=== PATIENT | male | born 1950 | race Caucasian/White ===

== ENCOUNTER 2017-10-16 14:58 | Inpatient (IN) | payer MEDICARE ==
[2017-10-16] MEDS: VANCOMYCIN 1 GM (PMX) 250 ML IVPB (23:30)
[2017-10-16] MEDS: PIPER-TAZO 3.375 GM IV (PMX) 100 ML IVPB (23:46)
[2017-10-16 23:48] LABS: ADD MAN DIFF? NO
[2017-10-16 23:50] LABS: WHITE BLOOD COUNT 8.4 10^3/ul (4.8-10.8)
[2017-10-16 23:50] LABS: BASOPHIL # 0.1 10^3/ul (0.0-0.1); BASOPHILS % 0.6 % (0.0-2.0); EOSINOPHILS # 0.2 10^3/ul (0.0-0.5); HEMATOCRIT 47.8 % (42.0-52.0); HEMOGLOBIN 15.7 g/dl (14.0-18.0); LYMPHOCYTES # 1.6 10^3/ul (0.8-2.9); LYMPHOCYTES % 18.9 % (15.0-51.0); MEAN CORPUSCULAR HEMOGLOBIN 30.8 pg (29.0-33.0); MEAN CORPUSCULAR HGB CONC 32.8 g/dl (32.0-37.0); MEAN CORPUSCULAR VOLUME 93.9 fl (82.0-101.0); MONOCYTE # 0.8 10^3/ul (0.3-0.9); NEUTROPHIL # 5.7 10^3/ul (1.6-7.5); PLATELET COUNT 224 10^3/UL (140-415); RED BLOOD COUNT 5.09 10^6/ul (4.70-6.10); RED CELL DISTRIBUTION WIDTH 12.9 % (11.5-14.5)
[2017-10-17] MEDS ORDERED: ACETAMINOPHEN 325 MG TAB PO
[2017-10-17] MEDS ORDERED: ONDANSETRON 4 MG INJ IV
[2017-10-17 00:26] LABS: ANION GAP 18 (8-16); BLOOD UREA NITROGEN 30 mg/dl (7-20); C-REACTIVE PROTEIN 3.6 mg/dl (0.0-0.9); CALCIUM 9.1 mg/dl (8.4-10.2); CARBON DIOXIDE 24 mmol/L (21-31); CHLORIDE 95 mmol/L (97-110); CREATININE 1.53 mg/dl (0.61-1.24); GLUCOSE 396 mg/dl (70-220); POTASSIUM 3.5 mmol/L (3.5-5.1); SODIUM 133 mmol/L (135-144)
[2017-10-17 00:48] LABS: ERYTHROCYTE SEDIMENTATION RATE 32 mm/Hr (0-20)
[2017-10-17] MEDS ORDERED: DEXTROSE 50% 50 ML SYRINGE IV ×2 (04:30)
[2017-10-17] MEDS ORDERED: GLUCAGON 1 MG INJ IM (04:30)
[2017-10-17] MEDS ORDERED: GLUCOSE GEL 15 GRAM TUBE BUCCAL (04:30)
[2017-10-17] MEDS ORDERED: HYDROCODONE/APAP (10/325) TAB PO (04:30)
[2017-10-17] MEDS ORDERED: VANCOMYCIN IV PER PHARMACY XX (04:30)
[2017-10-17] MEDS ORDERED: GLUCOSE GEL 15 GRAM TUBE PO ×2 (04:30)
[2017-10-17] MEDS: ALBUTEROL HFA 8 GM INHALER INH ×5 (05:00→20:39)
[2017-10-17] MEDS: metFORMIN 500 MG TAB PO ×2 (08:53→17:35)
[2017-10-17] MEDS: NATEGLINIDE 120 MG TAB PO ×3 (08:53→17:35)
[2017-10-17] MEDS: FENOFIBRATE 145 MG TAB PO (08:53)
[2017-10-17] MEDS: [UNRECOGNIZED DRUG - OTHER] XX ×2 (08:54→16:52)
[2017-10-17] MEDS ORDERED: NON-FORMULARY/PATIENT OWN MED (Liraglutide (Victoza 3-Pak) 1.8 MG) SQ (09:00)
[2017-10-17] MEDS: INSULIN ASPART [NOVOLOG] 3 ML PEN SC ×4 (09:16→21:00)
[2017-10-17] MEDS: VANCOMYCIN 1.25 GM in SOD CHLORIDE 0.45% 250 ML IVPB (09:25)
[2017-10-17] MEDS: TIOTROPIUM 18 MCG CAPSULE INHA DEV INH (09:25)
[2017-10-17] MEDS: SOD CHLORIDE 0.9% 1,000 ML IV (18:34)
[2017-10-17] MEDS: VANCOMYCIN 750 MG in DEXTROSE 5% 150 ML IVPB (20:39)
[2017-10-17] MEDS: ATORVASTATIN 40 MG TAB PO (20:39)
[2017-10-17] MEDS: INSULIN GLARGINE [LANtus] 3 ML PEN SC (20:42)
[2017-10-17] MEDS: HEPARIN 5,000 UNIT/0.5 ML VIAL SC (20:43)
[2017-10-17] MEDS ORDERED: LIRAGLUTIDE 0.6 MG/0.1 ML PEN.INJCTR SC ×2 (21:00)
[2017-10-17] MEDS: ACCU-CHEK XX (21:56)
[2017-10-17] MEDS: LIRAGLUTIDE SC (22:26)
[2017-10-18] MEDS: ALBUTEROL HFA 8 GM INHALER INH ×6 (01:00→20:32)
[2017-10-18] MEDS: SOD CHLORIDE 0.9% 1,000 ML IV ×2 (04:00→14:18)
[2017-10-18 05:28] LABS: ADD MAN DIFF? NO
[2017-10-18 05:34] LABS: WHITE BLOOD COUNT 7.8 10^3/ul (4.8-10.8)
[2017-10-18 05:34] LABS: BASOPHILS % 0.5 % (0.0-2.0); EOSINOPHILS # 0.2 10^3/ul (0.0-0.5); EOSINOPHILS % 2.4 % (0.0-7.0); HEMATOCRIT 42.4 % (42.0-52.0); HEMOGLOBIN 14.2 g/dl (14.0-18.0); LYMPHOCYTES # 1.4 10^3/ul (0.8-2.9); LYMPHOCYTES % 17.4 % (15.0-51.0); MEAN CORPUSCULAR HEMOGLOBIN 31.4 pg (29.0-33.0); MEAN CORPUSCULAR HGB CONC 33.5 g/dl (32.0-37.0); MEAN CORPUSCULAR VOLUME 93.8 fl (82.0-101.0); MEAN PLATELET VOLUME 8.8 fl (7.4-10.4); MONOCYTE # 0.8 10^3/ul (0.3-0.9); MONOCYTES % 10.2 % (0.0-11.0); NEUTROPHIL # 5.4 10^3/ul (1.6-7.5); NEUTROPHILS % 68.9 % (39.0-77.0); PLATELET COUNT 202 10^3/UL (140-415); RED BLOOD COUNT 4.52 10^6/ul (4.70-6.10)
[2017-10-18 05:48] LABS: CHOLESTEROL 121 mg/dl (100-200)
[2017-10-18 05:48] LABS: CHOL/HDL RATIO 2.8 RATIO; HDL CHOLESTEROL 43 mg/dl (30-78); LDL CHOLESTEROL,CALCULATED 50 mg/dl; TRIGLYCERIDES 138 mg/dl (0-149)
[2017-10-18 06:03] LABS: ALANINE AMINOTRANSFERASE 30 IU/L (13-69); ALKALINE PHOSPHATASE 64 IU/L (42-121); ANION GAP 13 (8-16); ASPARTATE AMINO TRANSFERASE 16 IU/L (15-46); BILIRUBIN,INDIRECT 0.2 mg/dl (0-1.1); BILIRUBIN,TOTAL 0.2 mg/dl (0.2-1.3); BLOOD UREA NITROGEN 18 mg/dl (7-20); CALCIUM 8.5 mg/dl (8.4-10.2); CARBON DIOXIDE 25 mmol/L (21-31); CHLORIDE 104 mmol/L (97-110); CREATININE 1.26 mg/dl (0.61-1.24); GLUCOSE 109 mg/dl (70-220); SODIUM 138 mmol/L (135-144)
[2017-10-18 06:04] LABS: ALBUMIN 3.2 g/dl (3.3-4.9); ALBUMIN/GLOBULIN RATIO 1.14
[2017-10-18] MEDS: INSULIN ASPART [NOVOLOG] 3 ML PEN SC ×4 (07:50→21:00)
[2017-10-18 08:26] LABS: HEMOGLOBIN A1C 13.9 % (0-5.9)
[2017-10-18] MEDS: NATEGLINIDE 120 MG TAB PO ×3 (08:48→18:08)
[2017-10-18] MEDS: FENOFIBRATE 145 MG TAB PO (08:48)
[2017-10-18] MEDS: metFORMIN 500 MG TAB PO ×2 (08:48→18:08)
[2017-10-18] MEDS: LINAGLIPTIN 5 MG TABLET PO (08:48)
[2017-10-18] MEDS: VANCOMYCIN 750 MG in DEXTROSE 5% 150 ML IVPB ×2 (08:49→22:18)
[2017-10-18] MEDS: TIOTROPIUM 18 MCG CAPSULE INHA DEV INH (08:49)
[2017-10-18] MEDS: EMPAGLIFLOZIN 10 MG TABLET PO (08:49)
[2017-10-18] MEDS: HEPARIN 5,000 UNIT/0.5 ML VIAL SC ×2 (09:00→20:37)
[2017-10-18] MEDS ORDERED: LIRAGLUTIDE 0.6 MG/0.1 ML PEN.INJCTR SC (09:00)
[2017-10-18] MEDS: ATORVASTATIN 40 MG TAB PO (20:33)
[2017-10-18] MEDS: LIRAGLUTIDE SC (20:33)
[2017-10-18] MEDS: INSULIN GLARGINE [LANtus] 3 ML PEN SC (20:36)
[2017-10-18] MEDS ORDERED: LIRAGLUTIDE SC ×2 (21:00)
[2017-10-18] MEDS: ACCU-CHEK XX (22:47)
[2017-10-19] MEDS: ALBUTEROL HFA 8 GM INHALER INH ×6 (01:00→20:28)
[2017-10-19] MEDS: SOD CHLORIDE 0.9% 1,000 ML IV ×4 (03:14→20:00)
[2017-10-19] MEDS: INSULIN ASPART [NOVOLOG] 3 ML PEN SC ×4 (07:50→21:00)
[2017-10-19] MEDS: LINAGLIPTIN 5 MG TABLET PO (08:27)
[2017-10-19] MEDS: NATEGLINIDE 120 MG TAB PO ×3 (08:27→18:03)
[2017-10-19] MEDS: metFORMIN 500 MG TAB PO ×2 (08:27→18:03)
[2017-10-19] MEDS: TIOTROPIUM 18 MCG CAPSULE INHA DEV INH (08:27)
[2017-10-19] MEDS: EMPAGLIFLOZIN 10 MG TABLET PO (08:27)
[2017-10-19] MEDS: FENOFIBRATE 145 MG TAB PO (08:28)
[2017-10-19] MEDS: HEPARIN 5,000 UNIT/0.5 ML VIAL SC ×2 (08:37→20:33)
[2017-10-19] MEDS: [UNRECOGNIZED DRUG - REMARK] XX (09:30)
[2017-10-19 10:34] LABS: VANCOMYCIN,TROUGH 13.9 ug/ml (10.0-20.0)
[2017-10-19] MEDS: INFLUENZA VIRUS VACCINE 0.5 ML (DISPENSING) IM* (12:52)
[2017-10-19] MEDS: VANCOMYCIN 750 MG in DEXTROSE 5% 150 ML IVPB (12:55)
[2017-10-19] MEDS: ATORVASTATIN 40 MG TAB PO (20:29)
[2017-10-19] MEDS: LIRAGLUTIDE SC (20:29)
[2017-10-19] MEDS: INSULIN GLARGINE [LANtus] 3 ML PEN SC (20:32)
[2017-10-20] MEDS: VANCOMYCIN 750 MG in DEXTROSE 5% 150 ML IVPB ×2 (00:39→13:49)
[2017-10-20] MEDS: ALBUTEROL HFA 8 GM INHALER INH ×6 (00:39→20:53)
[2017-10-20] MEDS: ACCU-CHEK XX (00:40)
[2017-10-20] MEDS: SOD CHLORIDE 0.9% 1,000 ML IV ×2 (05:44→18:20)
[2017-10-20 06:27] LABS: ADD MAN DIFF? NO
[2017-10-20 06:33] LABS: BASOPHILS % 0.4 % (0.0-2.0); EOSINOPHILS # 0.2 10^3/ul (0.0-0.5); EOSINOPHILS % 2.9 % (0.0-7.0); HEMATOCRIT 42.6 % (42.0-52.0); MEAN CORPUSCULAR HGB CONC 32.9 g/dl (32.0-37.0); MEAN CORPUSCULAR VOLUME 94.2 fl (82.0-101.0); MEAN PLATELET VOLUME 8.7 fl (7.4-10.4); MONOCYTE # 0.9 10^3/ul (0.3-0.9); MONOCYTES % 10.4 % (0.0-11.0); NEUTROPHIL # 6.1 10^3/ul (1.6-7.5); NEUTROPHILS % 73.7 % (39.0-77.0); PLATELET COUNT 230 10^3/UL (140-415); RED BLOOD COUNT 4.52 10^6/ul (4.70-6.10); RED CELL DISTRIBUTION WIDTH 12.9 % (11.5-14.5)
[2017-10-20 06:33] LABS: WHITE BLOOD COUNT 8.3 10^3/ul (4.8-10.8)
[2017-10-20 06:58] LABS: ANION GAP 12 (8-16); BLOOD UREA NITROGEN 19 mg/dl (7-20); CALCIUM 9.1 mg/dl (8.4-10.2); CARBON DIOXIDE 24 mmol/L (21-31); CHLORIDE 105 mmol/L (97-110); CREATININE 1.19 mg/dl (0.61-1.24); GLUCOSE 104 mg/dl (70-220); POTASSIUM 4.2 mmol/L (3.5-5.1); SODIUM 137 mmol/L (135-144)
[2017-10-20 07:08] LABS: PHOSPHORUS 4.8 mg/dl (2.5-4.9)
[2017-10-20 07:08] LABS: MAGNESIUM 1.8 mg/dl (1.7-2.5)
[2017-10-20] MEDS: INSULIN ASPART [NOVOLOG] 3 ML PEN SC ×4 (09:00→20:46)
[2017-10-20] MEDS: FENOFIBRATE 145 MG TAB PO (09:25)
[2017-10-20] MEDS: EMPAGLIFLOZIN 10 MG TABLET PO (09:25)
[2017-10-20] MEDS: metFORMIN 500 MG TAB PO ×2 (09:25→18:21)
[2017-10-20] MEDS: HEPARIN 5,000 UNIT/0.5 ML VIAL SC ×2 (09:25→20:53)
[2017-10-20] MEDS: LINAGLIPTIN 5 MG TABLET PO (09:26)
[2017-10-20] MEDS: NATEGLINIDE 120 MG TAB PO ×3 (09:26→18:21)
[2017-10-20] MEDS: TIOTROPIUM 18 MCG CAPSULE INHA DEV INH (09:26)
[2017-10-20] MEDS: ATORVASTATIN 40 MG TAB PO (20:44)
[2017-10-20] MEDS: LIRAGLUTIDE SC (20:49)
[2017-10-20] MEDS: INSULIN GLARGINE [LANtus] 3 ML PEN SC (20:52)
[2017-10-21] MEDS: VANCOMYCIN 750 MG in DEXTROSE 5% 150 ML IVPB ×2 (00:20→12:50)
[2017-10-21] MEDS: ALBUTEROL HFA 8 GM INHALER INH ×6 (00:28→21:00)
[2017-10-21] MEDS: ACCU-CHEK XX (00:29)
[2017-10-21] MEDS: SOD CHLORIDE 0.9% 1,000 ML IV ×3 (00:29→19:33)
[2017-10-21] MEDS: EMPAGLIFLOZIN 10 MG TABLET PO (08:56)
[2017-10-21] MEDS: TIOTROPIUM 18 MCG CAPSULE INHA DEV INH (08:57)
[2017-10-21] MEDS: metFORMIN 500 MG TAB PO ×2 (08:57→18:07)
[2017-10-21] MEDS: LINAGLIPTIN 5 MG TABLET PO (08:58)
[2017-10-21] MEDS: NATEGLINIDE 120 MG TAB PO ×3 (08:58→18:07)
[2017-10-21] MEDS: INSULIN ASPART [NOVOLOG] 3 ML PEN SC ×4 (08:59→21:00)
[2017-10-21] MEDS: HEPARIN 5,000 UNIT/0.5 ML VIAL SC ×2 (08:59→21:25)
[2017-10-21] MEDS: FENOFIBRATE 145 MG TAB PO (09:00)
[2017-10-21] MEDS: INSULIN GLARGINE [LANtus] 3 ML PEN SC (21:26)
[2017-10-21] MEDS: ATORVASTATIN 40 MG TAB PO (21:27)
[2017-10-21] MEDS: LIRAGLUTIDE SC (21:27)
[2017-10-22] MEDS: VANCOMYCIN 750 MG in DEXTROSE 5% 150 ML IVPB ×2 (00:04→13:29)
[2017-10-22] MEDS: ALBUTEROL HFA 8 GM INHALER INH ×3 (00:06→11:12)
[2017-10-22] MEDS: ACCU-CHEK XX (02:00)
[2017-10-22 06:35] LABS: BLOOD UREA NITROGEN 24 mg/dl (7-20)
[2017-10-22 06:35] LABS: CREATININE 1.28 mg/dl (0.61-1.24)
[2017-10-22] MEDS: INSULIN ASPART [NOVOLOG] 3 ML PEN SC ×2 (07:50→12:41)
[2017-10-22] MEDS: SOD CHLORIDE 0.9% 1,000 ML IV (08:00)
[2017-10-22] MEDS ORDERED: COLLAGENASE 30 GM TUBE TOP ×2 (09:00)
[2017-10-22] MEDS: LINAGLIPTIN 5 MG TABLET PO (09:00)
[2017-10-22] MEDS: metFORMIN 500 MG TAB PO (09:04)
[2017-10-22] MEDS: NATEGLINIDE 120 MG TAB PO ×2 (09:04→12:00)
[2017-10-22] MEDS: EMPAGLIFLOZIN 10 MG TABLET PO (09:05)
[2017-10-22] MEDS: TIOTROPIUM 18 MCG CAPSULE INHA DEV INH (11:12)
[2017-10-22] MEDS: HYDROCODONE/APAP (10/325) TAB PO (11:18)
[2017-10-22] MEDS: FENOFIBRATE 145 MG TAB PO (11:18)
[2017-10-22] MEDS: HEPARIN 5,000 UNIT/0.5 ML VIAL SC (11:22)
[2017-10-22 11:27] LABS: VANCOMYCIN,TROUGH 16.5 ug/ml (10.0-20.0)
[2017-10-22] MEDS ORDERED: TIOTROPIUM 18 MCG CAPSULE INHA DEV INH (11:46)
[2017-10-23] MEDS ORDERED: VANCOMYCIN 500MG/NS (PMX) 100 ML IVPB (01:00)
== END 2017-10-22 18:10 | disposition home health service (06) | DRG 593 ==
LOC: MS1 23:55 → E/R 14:58 → MS1 10-18 09:39
PROVIDERS: Internal Medicine
DX: L97.512 Non-pressure chronic ulcer of other part of right foot with fat layer exposed (principal); L03.115 Cellulitis of right lower limb; E11.65 Type 2 diabetes mellitus with hyperglycemia; J44.9 Chronic obstructive pulmonary disease, unspecified; F17.200 Nicotine dependence, unspecified, uncomplicated; Z91.19 Patient's noncompliance with other medical treatment and regimen; N18.9 Chronic kidney disease, unspecified
CPT/HCPCS: 36415; 73630; 73718; 80048; 80053; 80061; 80202; 82565; 82962; 83036; 83735; 84100; 84520; 85025; 85651; 86140; 87040; 90686; 96365; 96366; 96368; 99285-25